=== PATIENT | female | born 1975 | race Hispanic/Latino ===

== ENCOUNTER 2017-03-23 17:03 | Emergency (ER) | payer MEDICAID, MEDICARE ==
[2017-03-23 18:45] VITALS: BP 128/69
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
== END 2017-03-23 22:15 | disposition home or self-care (01) ==
LOC: ED 17:03
DX: F41.9 Anxiety disorder, unspecified (principal); G43.909 Migraine, unspecified, not intractable, without status migrainosus; K21.9 Gastro-esophageal reflux disease without esophagitis; F17.200 Nicotine dependence, unspecified, uncomplicated
CPT/HCPCS: 93005; 93010; 99282